=== PATIENT | male | born 1990 | race Caucasian/White ===

== ENCOUNTER → 2017-02-04 | Outpatient (CLI) | payer OTHER ==
--- NOTE | 2017-02-08 13:49 | SLEEP ---
DATE OF STUDY: 02/04/2017 ATTENDING PHYSICIAN: Dr. Margarito Murguia. The patient is 26 years old who weighs 310 pounds with a BMI of 42. The patient's Mitchell score was 6. Split night study was performed at [facility]. During the night study, the patient spent 421 minutes in bed and slept for 385 minutes with a sleep efficiency of 91%. Sleep latency was 10 minutes with a REM latency of 104 minutes. Overall, sleep architecture showed normal stage I and stage II sleep, increased slow wave and normal REM sleep. During the initial diagnostic portion of the study, the patient slept for 134 minutes. During this time, there were 17 obstructive apneas, 5 mixed and no central apneas. There were 54 hypopneas. The patient's apnea hypopnea index was 34 per hour with a supine index of 147 per hour and a REM index of 37 per hour. EKG monitoring revealed normal sinus rhythm. Average heart rate was 74 beats per minute. No sustained arrhythmias were observed. Nocturnal oximetry study revealed a mean oxygen saturation of 94% with the lowest of 75%. 15% of time, oxygen saturation remained between 80% and 89%. PLMs were not seen. The patient met the criteria for CPAP initiation. Was started at 5 cm of water and titrate up to 12 cm of water. At the final pressure, the patient had 73 minutes of sleep here. The patient had long REM period and no supine sleep was observed. The patient's AHI was 0 per hour and oxygen saturation remained above 93%. The patient used small-sized nasal pillows. IMPRESSION: 1. Severe sleep apnea-hypopnea syndrome at an AHI of 34 per hour with worsening during supine sleep. 2. Nocturnal hypoxia secondary to obstructive sleep apnea, but resolved with CPAP. 3. No clinically significant periodic limb movements of sleep. RECOMMENDATIONS: 1. CPAP at 12 cm water completely eliminated patient's sleep apnea and should be used on a nightly basis. 2. Follow up in 4-6 weeks to assess compliance with CPAP and to document clinical improvement. 3. Weight loss is strongly advised. 4. Avoid GOLD STAM[employer] depressants. 5. Caution regarding driving until symptoms of sleep apnea resolve with the use of CPAP. JESUS MATTHEWS MD DR: VIVIEN/janina JOB#: [id number] / [id number] MARGARITO Banuelos MD MTDD
== END | disposition home or self-care (01) ==
LOC: RT 20:18
PROVIDERS: ATTEND Family Medicine
DX: G47.33 Obstructive sleep apnea (adult) (pediatric) (principal)
CPT/HCPCS: 95810